=== PATIENT | female | born 1965 | race Caucasian/White ===

== ENCOUNTER 2016-12-29 11:38 | Inpatient (IN) | payer OTHER ==
[~2016-12-29] VITALS: Ht 156.2 cm; Wt 70.7 kg
[2016-12-29] VITALS (7 sets, daily range): BP systolic 113–163; BP diastolic 70–81; PULSE 97–107; TEMP 36.8–37.7; O2SAT 93–98; Ht 156.2 cm; Wt 70.7 kg
[2016-12-29] MEDS ORDERED: ONDANSETRON INJ 2 MG/ML 2 ML VIAL IV PRN (12:45)
[2016-12-29] MEDS ORDERED: ACETAMINOPHEN 325 MG TAB PO PRN (12:45)
[2016-12-29] MEDS ORDERED: LIRA18IN SQ (12:47)
[2016-12-29] MEDS ORDERED: LISIPOW OR (12:49)
[2016-12-29] MEDS ORDERED: TRAZ100T29 PO (12:50)
[2016-12-29] MEDS ORDERED: FLUT0.15 NAE (12:52)
[2016-12-29] MEDS ORDERED: antidepressant OR (12:52)
--- NOTE | 2016-12-29 13:22 | Gastrointestinal Consultation ---
Gastrointestinal Consultation Date of Consultation: Dec 29, 2016 Attending Physician: Dr. Conway Consulting Physician: Dr. Sanchez Reason for Consultation: Cirrhosis History of Present Illness Patient is a 51 year old female patient of Dr. Rocio Sykes, with a hx of ETOH cirrhosis was seen for GI f/u by Johanna Valle and was direct admitted from that office for SOB, new ascites. Regarding her hx of cirrhosis, she recalls having paracentesis in 2013 when she was living in [place]. Next, she was seen in September [address] Byrd who began a cirrhosis w/u with normal EGD in October 2015 but she wasn't seen again until today for SOB, worsening ascites. She has not been on diuretics. She denies confusion. No blood in stools, no black stools. She tells me that she has strictly abstained from alcohol since 2014. She is aware of the need to be on a low salt diet but admits to eating fast food frequently. On arrival here, CBC, CMP, INR are pending. Liver US and paracentesis are pending with albumin ordered prior. The pt is seen and examined while she is awake, alert, oriented and sitting up in bed. She is pleasant and conversant. Past Medical/Surgical History Past Medical History: 1. Diabetes 2. Depression 3. CKD 4. Anxiety Past Surgical History: 1. Open cholecystectomy 2. Paracenteses 3. EGD 10/27/[address] Byrd: normal. Social History Smoking Status: Current Some Day Smoker Alcohol Use: none (none since dx of cirrhosis) Drug Use: none Marital Status: single Housing Status: lives alone Occupation Status: unemployed Allergies Coded Allergies: Shrimp (Verified Allergy, Mild, rash, itching, 12/29/16) Current Medications Home Meds and Scripts Medications Dose Route/Sig Max Daily Dose Days Date Category Flonase Allergy Relief (Fluticasone Propionate (Nasal)) 50 Mcg/Act Spr 1 [place] JENNIFER DAILY PRN 12/29/16 Reported [antidepressant] Unknown Dose OR HS 12/29/16 Reported Trazodone (Trazodone HCl) 100 Mg Tab 150 Mg PO HS 12/29/16 Reported Lisinopril (Lisinopril (Bulk)) 1 Pow Pow Unknown Dose OR HS 12/29/16 Reported Victoza (Liraglutide) 18 Mg/3 Ml Inj 1.2 Mg SQ DAILY 12/29/16 Reported Review of Systems Constitutional: No fever, No chills, No sweats, No weight loss, No weakness Eyes: No eye pain, No redness ENT: No sore throat, No trouble swallowing, No pain on swallowing Respiratory: + shortness of breath (not able to get a deep satisfying breath because of the large ascites), No cough, No wheezing, No dyspnea on exertion Cardiac: No chest pain, No edema, No palpitations Abdomen: + see HPI Neuro: No memory loss, No weakness, No numbness/tingling, No vertigo, No balance problems Psych: No depression symptoms, No anxiety, No insomnia Heme: No abnormal bleeding/bruising, No night sweats Endo: No excessive thirst, No excessive urination Skin: No rash, No itch, No new/changing skin lesions, No jaundice Physical Exam Date Time Temp Pulse Resp B/P (MAP) Pulse Ox O2 Delivery O2 Flow Rate FiO2 12/29/16 12:46 36.9 107 18 115/78 (90) 96 Room Air General Appearance: no apparent distress Eyes: normal inspection, EOMI ENT: + pertinent finding (poor dental health) Neck: supple, no adenopathy, thyroid normal Respiratory/Chest: chest non-tender, lungs clear, normal breath sounds, no accessory muscle use Cardiovascular: regular rate, rhythm, no JVD, no murmur Abdomen: normal bowel sounds, non tender, no organomegaly, + tenderness ( moderate to large ascites) Extremities: normal inspection, no pedal edema, normal capillary refill Neurologic/Psych: alert, normal mood/affect, oriented x 3 Skin: normal color, no jaundice, warm/dry, no rash Laboratory Results Last 24 Hours Test 12/29/16 12:45 Impression Patient is a 51 year old female with Cirrhosis (likely ETOH and LUNDBERG), ascites is likely caused by salt intake. Plan 1. CXR 2. Liver ultrasound 3. Will await CBC CMP, INR results. 4. Will plan for US guided paracentesis this afternoon if can be arranged by radiology, with albumin before/after. 5. Low salt diet. I have personally seen and examined the patient with COLT Thibodeaux. Her note reflects my exam and findings. I agree with her impression and plan. If stable after paracentesis she can be D/C'd from a GI perspective. Jake Sanchez M.D.
[2016-12-29] MEDS: ALBUMIN HUMAN 25% 12.5 GM/50 ML VIAL IV SCH ×2 (13:52→15:20)
--- NOTE | 2016-12-29 13:55 | DIAGNOSTIC IMAGING REPORT ---
CHEST ONE VIEW PORTABLE HISTORY: 51 years-old Female acute shortness of breath with fluid overload COMPARISON: None available TECHNIQUE: Portable upright AP view of the chest FINDINGS: The patient is mildly rotated to the right. Cardiomediastinal and hilar silhouettes are within normal limits. There is no pneumothorax, pleural effusion, focal airspace consolidation or overt pulmonary edema. The bones are grossly intact. IMPRESSION: No acute cardiopulmonary process. The above report was generated using voice recognition software. It may contain grammatical, syntax or spelling errors. Electronically signed by: Jez Randolph M.D. 12/29/2016 1:53 PM Dictated Date/Time: 12/29/2016 1:52 PM
[2016-12-29] MEDS ORDERED: ESCI1TAB6 PO (13:58)
[2016-12-29] MEDS ORDERED: LSN5 PO (13:58)
[2016-12-29] MEDS ORDERED: CEFTRIAXONE SOD INJ 2,000 MG in DEXTROSE 5% 50ML 50 ML IV SCH (14:00)
[2016-12-29] MEDS ORDERED: GLUCAGON FOR INJ 1 MG VIAL SQ PRN (14:00)
[2016-12-29] MEDS ORDERED: GLUCOSE 10 TABS/TUBE PO PRN (14:00)
[2016-12-29] MEDS ORDERED: DEXTROSE 50% 50 ML SYR IV PRN (14:00)
[2016-12-29] MEDS ORDERED: GLUCOSE 40% GEL 15 GM TUBE PO PRN (14:00)
[2016-12-29 14:02] LABS: BASO % 0.5 %; BASO ABS # 0.08 K/uL (0-0.2); EOS % 1.9 %; HEMATOCRIT 37.5 % (37-47); IG% 0.6 %; LYMPH % 7.4 %; LYMPH ABS # 1.09 K/uL (1.2-3.4); MEAN CELL VOLUME 78.3 fL (80-100); MEAN CORPUSCULAR HEMOGLOBIN 25.1 pg (25-34); MEAN PLATELET VOLUME 8.8 fL (7.4-10.4); MONO % 5.6 %; PLATELET COUNT 947 K/uL (130-400); RED BLOOD COUNT 4.79 M/uL (4.2-5.4); WHITE BLOOD COUNT 14.81 K/uL (4.8-10.8)
[2016-12-29 14:10] LABS: INR 1.3 (0.9-1.1); PROTHROMBIN TIME (PATIENT) 13.9 SECONDS (9.0-12.0)
[2016-12-29 14:13] LABS: COMPLETE YES
[2016-12-29] MEDS ORDERED: FLUTICASONE PROPIONATE NA SPR 16 GM BTL NAE PRN (14:15)
[2016-12-29 14:36] LABS: ALB/GLOB RATIO 0.6 (0.9-2); BUN/CREATININE RATIO 17.5 (10-20); CALCIUM 9.8 mg/dl (8.5-10.1); CREATININE 1.1 mg/dl (0.60-1.20); POTASSIUM 3.9 mmol/L (3.5-5.1)
[2016-12-29] MEDS ORDERED: NICOTINE 14 MG/24 HR TDSY TD ONE (15:00)
[2016-12-29] MEDS ORDERED: PNEUMOCOCCAL POLYSACCHARIDES 25 MCG/0.5 ML VIAL/SYR IM. ONE (15:30)
[2016-12-29] MEDS ORDERED: PNEUMOCOCCAL ADMINISTRATION CHARGE ONE (15:30)
[2016-12-29] MEDS ORDERED: INSULIN ASPART 100 UNITS/ML 3 ML PEN SC SCH (16:30)
--- NOTE | 2016-12-29 18:00 | DIAGNOSTIC IMAGING REPORT ---
ULTRASOUND GUIDED DIAGNOSTIC AND THERAPEUTIC PARACENTESIS CLINICAL HISTORY: Ascites. COMPARISON STUDY: No previous studies for comparison. PROCEDURE: The risks, benefits, and alternatives to the procedure were discussed with the patient including the risk of bleeding, infection and injury to adjacent structures. The patient agreed to the procedure and informed written consent was obtained. Following real-time ultrasound localization, the skin of the left lower quadrant was prepped and draped. Following local anesthesia with Xylocaine, the sheath paracentesis needle was inserted and approximately 6 liters of reddish-brown ascites was removed by vacuum suction. The patient tolerated the procedure well and no immediate complications were evident. IMPRESSION: Ultrasound-guided paracentesis with removal of 6 liters of ascites. One liter of ascites sent to the laboratory for analysis as ordered. Electronically signed by: Fred Puri M.D. 12/29/2016 5:58 PM Dictated Date/Time: 12/29/2016 5:57 PM
--- NOTE | 2016-12-29 18:03 | DIAGNOSTIC IMAGING REPORT ---
ABDOMINAL ULTRASOUND, RIGHT UPPER QUADRANT HISTORY: Cirrhosis, HCC screen. COMPARISON: None. FINDINGS: A small amount of upper abdominal ascites is noted. This exam is compromised by suboptimal penetration. There is slight heterogeneity of the liver. No hepatic lesions are identified although sensitivity is diminished on this exam. The common bile duct is mildly dilated status post cholecystectomy. The common bile duct measures 8 mm in caliber. The pancreas is obscured by overlying bowel gas. There is no right hydronephrosis. Note is made of a 1.9 cm right renal cyst. IMPRESSION: 1. Slight coarsening of hepatic echotexture which suggests cirrhosis. No hepatic lesions identified although sensitivity significantly diminished given suboptimal penetration on this exam. 2. Obscured pancreas due to overlying bowel gas. 3. Mild dilatation of the common bile duct which may be related to prior cholecystectomy. Electronically signed by: Fred Puri M.D. 12/29/2016 6:02 PM Dictated Date/Time: 12/29/2016 5:59 PM
--- NOTE | 2016-12-29 18:05 | History and Physical ---
History & Physical Date & Time of Service: Dec 29, 2016 at 14:09 Chief Complaint: Ascites, Cirrhosis Primary Care Physician: Rocio Sykes M.D. History of Present Illness Source: patient, clinic records This is a 51 y/o female with PMH of ETOH cirrhosis, DM type 2, cirrhosis, who presents as a direct admission sent by GI for ascites and SOB. Pt was seen in clinic today by Johanna GREGORY, after last being seen by GI in 2015. Prior workup includes negative hepatitis panel in 09/2015 and normal EGD in 10/2015. Patient reports increasing abdominal girth over the past 1 week. She reports associated constant abdominal discomfort/ pressure. She notes difficulty taking a deep breath due to the ascites. Has chronic nonproductive cough attributed to smoking. States appetite is low. Did not eat today. Tried eating snap peas yesterday and was briefly nauseous. Denies fever, chills, chest pain, vomiting, diarrhea, hematochezia, melena, LE edema, weight change, confusion, jaundice. States she drank heavily in the past but no alcohol intake for past 3 years. She admitted to fast food intake to the GI provider. Pt reports having paracentesis in 2013 in [place]. Past Medical/Surgical History Medical Problems: (1) Anxiety Status: Chronic (2) Cirrhosis Status: Chronic (3) Cirrhosis Permanent Comment: due to etoh Status: Chronic (4) CKD (chronic kidney disease), stage III Status: Chronic (5) Depression Status: Chronic (6) DM type 2 (diabetes mellitus, type 2) Status: Chronic Surgical Problems: (1) H/O esophagogastroduodenoscopy Permanent Comment: WNL 10/2015 Status: Chronic (2) Hx of cholecystectomy Status: Chronic Family History Diabetes mellitus Social History Smoking Status: Current Every Day Smoker (1/2 ppd) Alcohol Use: no etoh for 3 years. prior heavy drinking. Drug Use: none Housing status: lives alone Allergies Coded Allergies: Shrimp (Verified Allergy, Mild, rash, itching, 12/29/16) Home Medications Scheduled Escitalopram Oxalate (Lexapro), 5 MG PO HS Liraglutide (Victoza), 1.2 MG SQ DAILY Lisinopril (Lisinopril), 5 MG PO HS Trazodone Hcl (Trazodone), 150 MG PO HS Scheduled PRN Fluticasone Propionate (Nasal) (Flonase Allergy Relief), 2 [place] DAILY PRN for Nasal Congestion Review of Systems Ten systems reviewed and negative except as noted in HPI. Physical Exam Vital Signs Date Time Temp Pulse Resp B/P (MAP) Pulse Ox O2 Delivery O2 Flow Rate FiO2 12/29/16 13:50 36.8 97 18 115/78 (90) 93 Room Air 12/29/16 13:00 36.9 107 18 115/78 96 Room Air 12/29/16 12:46 36.9 107 18 115/78 (90) 96 Room Air General Appearance: WD/WN, no apparent distress Head: normocephalic, atraumatic Eyes: normal inspection, sclerae normal ENT: hearing grossly normal, pharynx normal Neck: supple, trachea midline Respiratory/Chest: lungs clear, normal breath sounds, no respiratory distress, no accessory muscle use, + pertinent finding (saturating well on RA) Cardiovascular: no murmur, + tachycardia (mildly tachycardic, regular rhythm) Abdomen/GI: normal bowel sounds, non tender, + pertinent finding (moderate to severe ascites) Extremities/Musculoskelatal: no calf tenderness, no pedal edema Neurologic/Psych: alert, normal mood/affect, oriented x 3 Skin: normal color, warm/dry Diagnostics Laboratory Results Results Past 24 Hours Test 12/29/16 13:37 12/29/16 14:05 Range/Units White Blood Count 14.81 4.8-10.8 K/uL Red Blood Count 4.79 4.2-5.4 M/uL Hemoglobin 12.0 12.0-16.0 g/dL Hematocrit 37.5 37-47 % Mean Corpuscular Volume 78.3 80-100 fL Mean Corpuscular Hemoglobin 25.1 25-34 pg Platelet Count 947 130-400 K/uL Mean Platelet Volume 8.8 7.4-10.4 fL Neutrophils (%) (Auto) 84.0 % Lymphocytes (%) (Auto) 7.4 % Monocytes (%) (Auto) 5.6 % Eosinophils (%) (Auto) 1.9 % Basophils (%) (Auto) 0.5 % Neutrophils # (Auto) 12.44 1.4-6.5 K/uL Lymphocytes # (Auto) 1.09 1.2-3.4 K/uL Monocytes # (Auto) 0.83 0.11-0.59 K/uL Eosinophils # (Auto) 0.28 0-0.5 K/uL Basophils # (Auto) 0.08 0-0.2 K/uL RDW Standard Deviation 43.6 36.4-46.3 fL RDW Coefficient of Variation 15.1 11.5-14.5 % Immature Granulocyte % (Auto) 0.6 % Immature Granulocyte # (Auto) 0.09 0.00-0.02 K/uL Microbiology Results 12/29/16 Blood Culture, Received Pending 12/29/16 Blood Culture, Received Pending Diagnostic Radiology CHEST ONE VIEW PORTABLE HISTORY: 51 years-old Female acute shortness of breath with fluid overload COMPARISON: None available TECHNIQUE: Portable upright AP view of the chest FINDINGS: The patient is mildly rotated to the right. Cardiomediastinal and hilar silhouettes are within normal limits. There is no pneumothorax, pleural effusion, focal airspace consolidation or overt pulmonary edema. The bones are grossly intact. IMPRESSION: No acute cardiopulmonary process. EKG pending Impression Assessment and Plan ASCITES Due to alcoholic cirrhosis, non-compliance with low sodium diet Denies fever/chills at home; however spiked mild fever after admission (37.7); + leukocytosis (WBC 14.9K), mild tachycardia; BP stable; lactic acid + procalcitonin WNL Blood cultures pending Empiric Rocephin for SBP Diagnostic and therapeutic paracentesis with albumin before and after Check RUQ ultrasound- "1. Slight coarsening of hepatic echotexture which suggests cirrhosis. No hepatic lesions identified although sensitivity significantly diminished given suboptimal penetration on this exam. 2. Obscured pancreas due to overlying bowel gas. 3. Mild dilatation of the common bile duct which may be related to prior cholecystectomy." Labs show elevated alk phos (204), low albumin (3.1), elevated INR (1.3) Low sodium diet Consult GI- appreciate input CKD STAGE III Creat is 1.1; stable from baseline Monitor renal function Avoid nephrotoxins HTN Cont lisinopril DEPRESSION/ ANXIETY Continue Lexapro and trazodone DM TYPE 2 Hold Victoza Novolog sliding scale coverage Check A1c in am DVT PROPHYLAXIS SCD's FULL CODE DISPOSITION Admitted to telemetry Follows w/ Dr. Sykes for primary care Patient seen in collaboration with Dr. Christiansen. Please see his addendum. Agree with above h and p. Briefly 51F was sent in directly by GI for sob and increasing ascites. Patient says since last about 1-2 weeks her abdominal girth started to increase. She was non compliant with low salt diet.Says her abdomen pressing on thorax and causing sob. denies fever/chills. no chest pain. 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 Y/N: Yes Risk Level: Moderate
[2016-12-29 20:31] LABS: PERIT FL WBC 1539 /uL (0-300); PERITONEAL FLUID RBC 64000 /uL
[2016-12-29] MEDS ORDERED: LISINOPRIL 5 MG TAB PO SCH (21:00)
[2016-12-29] MEDS ORDERED: TRAZODONE HCL 100 MG TAB PO SCH (21:00)
[2016-12-29] MEDS ORDERED: ESCITALOPRAM OXALATE 10 MG TAB PO SCH (21:00)
[2016-12-30] MEDS ORDERED: NICOTINE 14 MG/24 HR TDSY TD SCH (09:00)
--- NOTE | 2016-12-31 07:30 | Discharge Summary ---
Discharge Summary Date of Service Dec 31, 2016. Discharge Summary Admission Date: Dec 29, 2016 at 12:16 Discharge Disposition: Home Principal Diagnosis: volume overload ascites sob liver cirrhosis Secondary Diagnoses/Problems: 1) Anxiety Status: Chronic (2) Cirrhosis Status: Chronic (3) Cirrhosis Permanent Comment: due to etoh Status: Chronic (4) CKD (chronic kidney disease), stage III Status: Chronic (5) Depression Status: Chronic (6) DM type 2 (diabetes mellitus, type 2) Status: Chronic Procedures: cxr: No acute cardiopulmonary process paracentesis: Ultrasound-guided paracentesis with removal of 6 liters of ascites. One liter of ascites sent to the laboratory for analysis as ordered. Liver US: 1. Slight coarsening of hepatic echotexture which suggests cirrhosis. No hepatic lesions identified although sensitivity significantly diminished given suboptimal penetration on this exam. 2. Obscured pancreas due to overlying bowel gas. 3. Mild dilatation of the common bile duct which may be related to prior cholecystectomy. Consultations: gi Admission Information HPI (per Admitting provider): This is a 51 y/o female with PMH of ETOH cirrhosis, DM type 2, cirrhosis, who presents as a direct admission sent by GI for ascites and SOB. Pt was seen in clinic today by Johanna GREGORY, after last being seen by GI in 2015. Prior workup includes negative hepatitis panel in 09/2015 and normal EGD in 10/2015. Patient reports increasing abdominal girth over the past 1 week. She reports associated constant abdominal discomfort/ pressure. She notes difficulty taking a deep breath due to the ascites. Has chronic nonproductive cough attributed to smoking. States appetite is low. Did not eat today. Tried eating snap peas yesterday and was briefly nauseous. Denies fever, chills, chest pain, vomiting, diarrhea, hematochezia, melena, LE edema, weight change, confusion, jaundice. States she drank heavily in the past but no alcohol intake for past 3 years. She admitted to fast food intake to the GI provider. Pt reports having paracentesis in 2013 in [place]. Physical Exam (per Admitting): General Appearance: WD/WN, no apparent distress Head: normocephalic, atraumatic Eyes: normal inspection, sclerae normal ENT: hearing grossly normal, pharynx normal Neck: supple, trachea midline Respiratory/Chest: lungs clear, normal breath sounds, no respiratory distress, no accessory muscle use, + pertinent finding (saturating well on RA) Cardiovascular: no murmur, + tachycardia (mildly tachycardic, regular rhythm ) Abdomen/GI: normal bowel sounds, non tender, + pertinent finding (moderate to severe ascites) Extremities/Musculoskelatal: no calf tenderness, no pedal edema Neurologic/Psych: alert, normal mood/affect, oriented x 3 Skin: normal color, warm/dry Hospital Course PATIENT IS S/P PARACENTESIS ABOUT 6LTS TAKEN OUT AND PATINET IS FEELING FINE. AFTER PARACENTESIS PATIENT WAS ADAMANT OF LEAVING THE HOSPITAL EVEN THOUGH REQUESTING TO STAY ONE MORE DAY FOR STARTING DIURETICS AND MONITORING LABS.PATIENT REFUSED AND SIGNED OUT AMA. AGREED TO FOLLOW WITH GI. HOSPITAL COURSE: ASCITES Due to alcoholic cirrhosis, non-compliance with low sodium diet Denies fever/chills at home; however spiked mild fever after admission (37.7); + leukocytosis (WBC 14.9K), mild tachycardia; BP stable; lactic acid + procalcitonin WNL Blood cultures pending Empiric Rocephin for SBP Diagnostic and therapeutic paracentesis with albumin before and after Check RUQ ultrasound- "1. Slight coarsening of hepatic echotexture which suggests cirrhosis. No hepatic lesions identified although sensitivity significantly diminished given suboptimal penetration on this exam. 2. Obscured pancreas due to overlying bowel gas. 3. Mild dilatation of the common bile duct which may be related to prior cholecystectomy." Labs show elevated alk phos (204), low albumin (3.1), elevated INR (1.3) Low sodium diet Consult GI- appreciate input CKD STAGE III Creat is 1.1; stable from baseline Monitor renal function Avoid nephrotoxins HTN Cont lisinopril DEPRESSION/ ANXIETY Continue Lexapro and trazodone DM TYPE 2 Hold Victoza Novolog sliding scale coverage Check A1c in am DVT PROPHYLAXIS SCD's FULL CODE Total time spent on discharge = This includes examination of the patient, discharge planning, medication reconciliation, and communication with other providers. Discharge Instructions NO D/C INSTRUCTIONS SIGNED OUT AMA
== END 2016-12-29 18:45 | disposition left against medical advice (07) | DRG 434 ==
LOC: C.MED 12:16
PROVIDERS: ADMIT Internal Medicine; ATTEND Internal Medicine
PROC: 0W9G3ZX Drainage of Peritoneal Cavity, Percutaneous Approach, Diagnostic (ICD-10-PCS; principal; 2016-12-29)
PROC: 0W9G3ZZ Drainage of Peritoneal Cavity, Percutaneous Approach (ICD-10-PCS; principal; 2016-12-29)
DX: K70.31 Alcoholic cirrhosis of liver with ascites (principal); Z91.11 Patient's noncompliance with dietary regimen; E11.9 Type 2 diabetes mellitus without complications; N18.3 Chronic kidney disease, stage 3 (moderate); I12.9 Hypertensive chronic kidney disease with stage 1 through stage 4 chronic kidney disease, or unspecified chronic kidney disease; F32.9 Major depressive disorder, single episode, unspecified; F41.9 Anxiety disorder, unspecified; F10.21 Alcohol dependence, in remission; F17.200 Nicotine dependence, unspecified, uncomplicated; Z79.899 Other long term (current) drug therapy; Z83.3 Family history of diabetes mellitus